=== PATIENT | male | born 1955 | race Caucasian/White ===

== ENCOUNTER 2022-10-15 09:57 | Outpatient (CLI) | payer MEDICARE, BC, SELFPAY | END 2022-10-15 09:58 | disposition home or self-care (01) | LOC: LKVREF 10:00 | PROVIDERS: Visit Provider Physician Assistant Medical | DX: C85.90 Non-Hodgkin lymphoma, unspecified, unspecified site (principal); M79.89 Other specified soft tissue disorders | CPT/HCPCS: 83880 ==